=== PATIENT | male | born 1990 | race Caucasian/White ===

== ENCOUNTER 2016-11-10 22:23 | Emergency (ER) | payer BC ==
[~2016-11-10] VITALS: Ht 190.5 cm; Wt 80.7 kg
[2016-11-11] MEDS ORDERED: HYDR-971 PO (00:01)
[2016-11-11] MEDS ORDERED: IBUP600T16 PO (00:01)
[2016-11-11] MEDS ORDERED: SULF1TAB24 PO (00:01)
--- NOTE | 2016-11-11 00:04 | PHYS DOC ---
Adult General Chief Complaint Chief Complaint: EYE PROBLEMS HPI HPI Patient is a 21-year-old gentleman with an abscess over his right eyebrow. Patient reports she went hiking in [place] last week and sustained a severe sunburn. Patient reports he noticed increasing swelling over the last 24 hours above his right eyebrow with severe pain. Patient reports she was able squeeze out some pus from over his right eyebrow. Patient feels that his sunburn got infected. Patient reports he does have a headache however not severe. Patient has no nuchal rigidity. Patient has no photophobia. Patient reports it's not the worse headache of his life. Patient reports no pain in his head when he embolus. Patient denies any fevers shakes chills. Patient denies any nausea vomiting or diarrhea. Patient denies any double vision or blurred vision. Patient's physical exam was significant for soft tissue swelling induration warmth and erythema approximately 2 x 2 centimeter above his right eyebrow. There is no fluctuance. He was equally round and reactive to light. Extraocular motions intact. No disconjugate gaze. No nuchal rigidity. No Kernig's or Brudzinski sign. Assessment and plan 21-year-old with a periorbital cellulitis. Patient does have some edema surrounding his right eye. Over his right eyebrow there is an area of induration and warmth and redness that is nonfluctuant. I discussed with the patient given that is a periorbital cellulitis that I would prefer to admitted to the hospital for IV antibiotics however the patient is adamantly refusing. Patient reports that his son's birthday is coming up and he does not want be admitted to the hospital. I have offered to give the patient oral antibiotics and advised him that his suboptimal and the risks of meningitis and . Patient reports that he would prefer to try the oral antibiotics initially and if things do not improve he'll return to the ER immediately for admission to the hospital. Patient was discharged home on Bactrim as well as Ultram and given [place] and ibuprofen. Review of Systems Review of Systems Constitutional: Denies fever or chills [] Eyes: Denies change in visual acuity, redness, or eye pain [] All other review systems are negative except as documented in the history of present illness portion. Current Medications Current Medications Current Medications Medications (Trade) Dose Ordered Sig/Sandy Start Time Stop Time Status Last Admin Dose Admin Tramadol HCl (Ultram) 50 mg 1X ONCE 11/11/16 00:00 11/11/16 00:01 UNV Trimethoprim/ Sulfamethoxazole (Bactrim Ds) 2 tab 1X ONCE 11/11/16 00:00 11/11/16 00:01 UNV Allergies Allergies Allergies Coded Allergies Type Severity Reaction Last Updated Verified No Known Drug Allergies 11/10/16 No Physical Exam Physical Exam Constitutional: Well developed, well nourished, no acute distress, non-toxic appearance. [] HENT: Normocephalic, atraumatic, bilateral external ears normal, oropharynx moist, no oral exudates, nose normal. [] Eyes: PERRLA, EOMI, conjunctiva normal, no discharge seen above.. [] Neck: Normal range of motion, no tenderness, supple, no stridor. [] Cardiovascular:Heart rate regular rhythm, Lungs & Thorax: Bilateral breath sounds clear to auscultation [] Abdomen: Bowel sounds normal, soft, no tenderness, no masses, no pulsatile masses. [] Skin: See above. Back: No tenderness, no CVA tenderness. [] Extremities: No tenderness, no cyanosis, no clubbing, ROM intact, no edema. [] Neurologic: Alert and oriented X 3, normal motor function, normal sensory function, no focal deficits noted. [] Psychologic: Affect normal, judgement normal, mood normal. [] EKG EKG [] Radiology/Procedures Radiology/Procedures [] Course & Med Decision Making Course & Med Decision Making Pertinent Labs and Imaging studies reviewed. (See chart for details) [] Dragon Disclaimer Dragon Disclaimer This chart was dictated in whole or in part using Voice Recognition software in a busy, high-work load, and often noisy Emergency Department environment. It may contain unintended and wholly unrecognized errors or omissions. Departure Departure: Impression: Primary Impression: Periorbital cellulitis of right eye Disposition: HOME, SELF-CARE Condition: IMPROVED Referrals: SIDNEY FOURNIER MD (PCP) Patient Instructions: Periorbital Cellulitis Additional Instructions: 1. Please return to the ER if he should change your mind about being admitted to the hospital. Although the antibiotic pills that were prescribed for you should help treat your infection, it would be safer and more reliable if you were admitted to the hospital to get IV antibiotics. We always worry about the infection spreading to your bloodstream or to your brain causing meningitis, which can cause serious infections and the potential for . Using IV antibiotics would decrease the likelihood of this occurring. 2. Return to the ER if he started developing any fevers, neck stiffness, worsening headaches. 3. Follow-up with your family doctor in one to 2 days for reevaluation. If you are unable to see her family doctor in one to 2 days then please return to the ER so that he can be reevaluated here. Scripts Hydrocodone Bit/Acetaminophen (NORCO 5-325 TABLET) 1 Each Tablet 1 TAB PO PRN Q6HRS Y for PAIN, #12 TAB 0 Refills Prov: ERIC LO MD 11/11/16 Ibuprofen (IBUPROFEN) 600 Mg Tablet 600 MG PO QID Y for PAIN, #20 Prov: ERIC LO MD 11/11/16 Sulfamethoxazole/Trimethoprim (BACTRIM DS TABLET) 1 Each Tablet 2 TAB PO BID, #40 TAB Prov: ERIC LO MD 11/11/16 ERIC LO MD Nov 11, 2016 00:04
[2016-11-11] MEDS ORDERED: traMADol 50 MG TABLET PO ONE (00:15)
[2016-11-11] MEDS ORDERED: SMZ/TMP 800/160MG TABLET. PO ONE (00:15)
[2016-11-11 00:30] VITALS: BP 126/79
[2016-11-14] MEDS ORDERED: LINE600I IV (15:55)
[2016-11-14] MEDS ORDERED: ERTA1VIA IJ (15:57)
[2016-11-14] MEDS ORDERED: HYDR-2758 PO (16:02)
== END 2016-11-11 00:40 | disposition home or self-care (01) ==
LOC: ER 22:23
DX: L03.213 Periorbital cellulitis (principal)
CPT/HCPCS: 99283

== ENCOUNTER → 2017-09-15 | Outpatient (CLI) | payer OTHER ==
[2016-11-24 20:07] VITALS: BP 113/67
[~2017-09-15] MED LIST: ERTA1VIA IJ; HYDR-2758 PO; HYDR-971 PO; IBUP600T16 PO; LINE600I IV; SULF1TAB24 PO
--- NOTE | 2017-09-15 13:58 | RAD ---
CT HEAD WO CONTRAST dated 09/15/2017 1:31 PM Indication:. SyncopeSYNCOPAL EPISODE 12 HRS AGO HITTING HEAD ON FLOOR.LOC 1-2MIN. CURRENT SYMPTOMS DIZZINESS, BLURRED VISION, TSANG, RINGING IN LEFT EAR.CONTUSION AT OCCIPUT. PRIOR IMAGES SENT WITH REPORT. PT SHIELDED. Comparison: 11/13/2016 Technique: Contiguous axial imaging the head was performed from skull base to vertex. One or more of the following individualized dose reduction techniques were utilized for this examination: 1. Automated exposure control 2. Adjustment of the mA and/or kV according to patient size 3. Use of iterative reconstruction technique Findings: Ventricles and sulci are within normal limits for age. No midline shift or mass effect. Brain parenchyma is of normal attenuation. No hemorrhage or extra-axial collection. Posterior fossa and brainstem unremarkable. Visualized paranasal sinuses and mastoid air cells are clear. No apparent calvarial abnormality. IMPRESSION: No evidence of acute intracranial abnormality. Electronically signed by: Samuel Garcias MD (09/15/2017 1:55 PM) [id number]
== END | disposition home or self-care (01) ==
LOC: CT 13:12
PROVIDERS: ATTEND Family Medicine
DX: S06.0X1A Concussion with loss of consciousness of 30 minutes or less, initial encounter (principal); M54.81 Occipital neuralgia; H53.8 Other visual disturbances; Z91.81 History of falling
CPT/HCPCS: 70450

== ENCOUNTER 2021-01-06 12:25 | Emergency (ER) | payer SELFPAY ==
[~2021-01-06] VITALS: Ht 157.5 cm; Wt 90.0 kg
[~2021-01-06 12:25] MED LIST changes: -ERTA1VIA IJ; +ERTA1VIA16 IJ; +HYDR-2155 PO; -HYDR-2758 PO; +HYDR-3165 PO; -HYDR-971 PO
[2021-01-06] MEDS ORDERED: FAMOTIDINE 20 MG/2 ML VIAL ONE (12:31)
[2021-01-06] MEDS ORDERED: methylPREDNISolone SOD SUCC PF 125 MG/2 ML VIAL. ONE (12:31)
[2021-01-06] MEDS ORDERED: diphenhydrAMINE 50 MG/ML VIAL ONE (12:31)
[2021-01-06] MEDS ORDERED: FAMOTIDINE 20 MG/2 ML VIAL IVP ONE (12:45)
[2021-01-06] MEDS ORDERED: methylPREDNISolone SOD SUCC PF 125 MG/2 ML VIAL. IV ONE (12:45)
[2021-01-06] MEDS ORDERED: diphenhydrAMINE 50 MG/ML VIAL IVP ONE (12:45)
[2021-01-06 12:49] VITALS: BP 123/75
--- NOTE | 2021-01-06 13:08 | PHYS DOC ---
Past History Past Medical History: No Pertinent History Past Surgical History: No Surgical History Alcohol Use: None Drug Use: None General Adult EDM: Chief Complaint: ALLERGIC REACTION HPI: HPI: 30-year-old male presents emergency room with concern for allergic reaction to bee stings. The patient has a known allergy to bee stings. He believes he was stung at least 3 times. He was working on a roof and they came across a hive in the [facility]. He started to have swelling and was concerned about shortness of breath so came to the emergency room. By the time he arrived he felt like his throat was a little swollen but he was not having trouble breathing. He does not carry an EpiPen. Review of Systems: Review of Systems: Constitutional: Denies fever or chills. Allergic reaction Eyes: Denies change in visual acuity HENT: Denies nasal congestion or sore throat Respiratory: Denies cough or shortness of breath Cardiovascular: Denies chest pain or edema GI: Denies abdominal pain, nausea, vomiting, bloody stools or diarrhea : Denies dysuria Musculoskeletal: Denies back pain or joint pain Integument: Denies rash Neurologic: Denies headache, focal weakness or sensory changes Endocrine: Denies polyuria or polydipsia Lymphatic: Denies swollen glands Psychiatric: Denies depression or anxiety Current Medications: Current Meds: Current Medications Medications (Trade) Dose Ordered Sig/Sandy Start Time Stop Time Status Last Admin Dose Admin Diphenhydramine HCl (Benadryl) 50 mg 1X ONCE 01/06/21 12:45 01/06/21 12:55 DC Famotidine (Pepcid Vial) 20 mg 1X ONCE 01/06/21 12:45 01/06/21 12:55 DC Methylprednisolone Sodium Succinate (SOLU-Medrol 125MG VIAL) 125 mg 1X ONCE 01/06/21 12:45 01/06/21 12:55 DC Allergies: Allergies: Allergies Coded Allergies Type Severity Reaction Last Updated Verified No Known Drug Allergies 11/10/16 No Physical Exam: PE: Constitutional: Well developed, well nourished, no acute distress, non-toxic appearance. [] HENT: Normocephalic, atraumatic, bilateral external ears normal, oropharynx moist, no oral exudates, nose normal. [] Eyes: PERRLA, EOMI, conjunctiva normal, no discharge. [] Neck: Normal range of motion, no tenderness, supple, no stridor. [] Cardiovascular:Heart rate regular rhythm, no murmur [] Lungs & Thorax: Bilateral breath sounds clear to auscultation [] Abdomen: Bowel sounds normal, soft, no tenderness, no masses, no pulsatile masses. [] Skin: Mild urticaria [] Back: No tenderness, no CVA tenderness. [] Extremities: No tenderness, no cyanosis, no clubbing, ROM intact, no edema. [] Neurologic: Alert and oriented X 3, normal motor function, normal sensory fun ction, no focal deficits noted. [] Psychologic: Affect normal, judgement normal, mood normal. [] Current Patient Data: Vital Signs: Vital Signs Date Time Temp Pulse Resp B/P (MAP) Pulse Ox O2 Delivery O2 Flow Rate FiO2 01/06/21 12:49 98.0 63 20 123/75 99 EKG: EKG: [] Radiology/Procedures: Radiology/Procedures: [] Heart Score: C/O Chest Pain: N/A Risk Factors: Risk Factors: DM, Current or recent (<one month) smoker, HTN, HLP, family history of CAD, obesity. Risk Scores: Score 0 - 3: 2.5% MACE over next 6 weeks - Discharge Home Score 4 - 6: 20.3% MACE over next 6 weeks - Admit for Clinical Observation Score 7 - 10: 72.7% MACE over next 6 weeks - Early Invasive Strategies Course & Med Decision Making: Course & Med Decision Making Pertinent Labs and Imaging studies reviewed. (See chart for details) On arrival the patient was given 125 of Solu-Medrol, Pepcid 20 mg, and 50 Benadryl IV. We will also start a liter normal saline. We will monitor the patient to make sure his symptoms do not get worse. The patient has had no further complications the emergency room. We have observed him for greater than 2 hours. He is stable for discharge at this time. [] Dragon Disclaimer: Dragon Disclaimer: This electronic medical record was generated, in whole or in part, using a voice recognition dictation system. Departure Departure: Impression: Primary Impression: Allergic reaction to bee sting Disposition: HOME / SELF CARE / HOMELESS Condition: IMPROVED Referrals: SIDNEY FOURNIER MD (PCP) Patient Instructions: Insect Sting Allergy DAISY NICE DO Jan 06, 2021 13:08
== END 2021-01-06 14:39 | disposition home or self-care (01) ==
LOC: ER 12:25
DX: T63.441A Toxic effect of venom of bees, accidental (unintentional), initial encounter (principal); R06.02 Shortness of breath; Y92.89 Other specified places as the place of occurrence of the external cause
CPT/HCPCS: 99281; 99283